=== PATIENT | male | born 1950 | race Caucasian/White ===

== ENCOUNTER 2019-08-06 06:47 | Emergency (ER) | payer MEDICARE, BC, OTHER ==
[~2019-08-06] VITALS: Ht 182.9 cm; Wt 95.2 kg
== END 2019-08-06 10:00 | disposition home or self-care (01) ==
LOC: ER 06:47
DX: U07.1 COVID-19 (principal)
CPT/HCPCS: 99283; U0002

== ENCOUNTER 2020-11-08 09:18 | Emergency (ER) | payer MEDICARE, BC ==
[~2020-11-08] VITALS: Ht 188 cm; Wt 108.9 kg
== END 2020-11-08 13:00 | disposition home or self-care (01) ==
LOC: ER 09:18
DX: U07.1 COVID-19 (principal)
CPT/HCPCS: 12001; 90471; 96372-59; 96374-59; 99285-25; Q0243

== ENCOUNTER 2022-10-21 11:25 | Emergency (ER) | payer MEDICARE, BC ==
[~2022-10-21] VITALS: Ht 180.3 cm; Wt 111.1 kg
[2022-10-21 12:05] LABS: BASOPHILS ABSOLUTE AUTO 0.06 K/mm3 (0.00-0.23); BASOPHILS PERCENT AUTO 1 % (0-2); EOSINOPHILS ABSOLUTE AUTO 0.06 K/mm3 (0.00-0.68); EOSINOPHILS PERCENT AUTO 1 % (0-6); Hematocrit 43.4 % (37.0-53.0); Hemoglobin 14.4 g/dL (13.5-17.5); IMMATURE GRAN ABSOLUTE AUTO 0.02 K/mm3 (0.00-0.10); IMMATURE GRAN PERCENT AUTO 0 % (0-1); LYMPHOCYTES ABSOLUTE AUTO 1.27 K/mm3 (0.84-5.20); LYMPHOCYTES PERCENT AUTO 13 % (21-46); MONOCYTES PERCENT AUTO 4 % (4-13); Mean Corpuscular HGB 27.1 pg (26.0-34.0); Mean Corpuscular HGB Conc 33.2 g/dL (31.5-36.5); Mean Corpuscular Volume 82 fL (80-100); Mean Platelet Volume 10.6 fL (9.1-12.4); NEUTROPHILS ABSOLUTE AUTO 7.64 K/mm3 (1.96-9.15); NEUTROPHILS PERCENT AUTO 81 % (41-73); Platelet Count 325 K/mm3 (150-400); RDW Coefficient Variation 13.3 % (11.7-14.2); RDW Standard Deviation 39.7 fL (35.1-46.3); Red Blood Cell Count 5.32 M/mm3 (4.30-5.90); White Blood Cell Count 9.45 K/mm3 (4.00-11.30)
[2022-10-21 12:25] LABS: Albumin, Blood 3.6 g/dL (3.4-5.0); Albumin/Globulin Ratio 0.9 (0.8-1.8); Bilirubin, Total 0.4 mg/dL (0.1-1.0); Bun/Creatinine Ratio 13.7 (12.0-20.0); Calcium, Blood 8.6 mg/dL (8.5-10.1); Creatinine, Blood 0.95 mg/dL (0.60-1.20); Globulin, Blood 3.8 g/dL (2.2-4.0); Potassium, Blood 4.4 mmol/L (3.5-5.5); Total Protein, Blood 7.4 g/dL (6.4-8.2)
[2022-10-21] MEDS ORDERED: ESOM20 PO (13:52)
[2022-10-21] MEDS ORDERED: OSTEO BI-FLEX (13:54)
[2022-10-21] MEDS ORDERED: MECL25 PO (16:44)
[2022-10-21 16:45] VITALS: BP 170/86
[2022-10-21] MEDS ORDERED: CIPRODEX OTIC7.5 M1 RIGHTEAR (16:49)
== END 2022-10-21 17:24 | disposition home or self-care (01) ==
LOC: ER 11:25
PROVIDERS: Physician Assistant
DX: I10 Essential (primary) hypertension (principal); R42 Dizziness and giddiness; R73.9 Hyperglycemia, unspecified; H60.90 Unspecified otitis externa, unspecified ear; R55 Syncope and collapse; M19.90 Unspecified osteoarthritis, unspecified site; Z79.899 Other long term (current) drug therapy
CPT/HCPCS: 80053; 84484; 85025; 93880; A9270

== ENCOUNTER 2024-07-07 08:08 | Day surgery (SDC) | payer MEDICARE, BC ==
[2024-07-07] VITALS (20 sets, daily range): BP systolic 122–177; BP diastolic 65–83
[~2024-07-07] VITALS: Ht 180.3 cm; Wt 109.2 kg
[~2024-07-07 08:08] MED LIST: CIPRODEX OTIC7.5 M1 RIGHTEAR; Crestor40 MG PO; ESOM20 PO; LISI20; Lactated Ringer's 1,000 ML IV SCH; MECL25 PO; OSTEO BI-FLEX
[2024-07-07] MEDS ORDERED: propofoL 40 ML IV ONE (08:35)
--- NOTE | 2024-07-07 08:46 | NUR ---
07/07/24 0846 Noemy Renae CONFIRMED AND REVIEWED H&P, MEDCICATIONS, ALLERGIES, MEDICAL HISTORY, RESPIRATORY HISTORY, VITAL SIGNS, 3-LEAD EKG, CONSENTS, AND PHYSICIAN ORDERS. PATIENT CONFIRMS NPO STATUS AND AGREES WITH SCHEDULED PROCEDURE. MONITOR INTACT WITH CONTINUOUS PULSE OXIMETRY, CAPNOGRAPHY, 3-LEAD EKG, INTERMITTENT BP. SUPPLEMENTAL O2 TO BE TITRATED THROUGHOUT PROCEDURE TO MAINTAIN O2 SATURATION ABOVE 90%. PATIENT DETERMINED TO BE ASA APPROPRIATE FOR PROPOFOL SEDATION PRIOR TO START OF PROCEDURE BY DR. ABRAMS.
--- NOTE | 2024-07-07 09:45 | NUR ---
DISCHARGE PT A&OX4/VSS/RA/TALKING/ANSWERS Q APPROPRIATELY, IV DC'D, DRESSED SELF, DC INS PROVIDED TO PT AND /IT SYSTEMS ADMINISTRATOR WHO REP UNDERSTANDING, LEFT VIA WC WITH DC VOL TO GO HOME WITH /IT SYSTEMS ADMINISTRATOR WITH ALL PERSONAL POSSESSIONS.
== END 2024-07-07 23:00 | disposition home or self-care (01) ==
LOC: ORSCMMR 08:08 → ORD 08:30 → ORSCMMR 23:00
PROVIDERS: Internal Medicine Gastroenterology
PROC: 0DBL8ZX Excision of Transverse Colon, Via Natural or Artificial Opening Endoscopic, Diagnostic (ICD-10-PCS; principal; 2024-07-07 08:30)
DX: Z12.11 Encounter for screening for malignant neoplasm of colon (principal); D12.3 Benign neoplasm of transverse colon; R73.03 Prediabetes; I10 Essential (primary) hypertension; E78.00 Pure hypercholesterolemia, unspecified; K21.9 Gastro-esophageal reflux disease without esophagitis; Z87.891 Personal history of nicotine dependence; Z79.899 Other long term (current) drug therapy
CPT/HCPCS: 82947; 88305; J2704; J7120